=== PATIENT | female | born 2000 | race American Indian/Alaskan Native ===

== ENCOUNTER 2018-04-14 10:06 | Emergency (ER) | payer OTHER ==
[~2018-04-14] VITALS: Ht 162.6 cm; Wt 77.1 kg
[~2018-04-14 10:06] MED LIST: ACID CONTROLLER20 MG PO; CELEXA20 MG PO; CITALOPRAM HBR40 MG PO; CYCLOBENZAPRINE5 MG PO; DOXYCYCLINE HY100 MG PO; GENERESS FE CH1 EACH PO; LORATADINE10 MG PO; MELATONIN10 M2 PO; MELATONIN2.5 MG PO; MINIPRESS1 MG PO; NAPROXEN500 MG PO; NICOTINE PATCH1 EACH TD; NON-ASA ALLERG1 EACH PO; NORCO 5-325 TA1 EACH PO; OMEPRAZOLE20 MG PO; ONDANSETRON ODT4 MG SL; PEPCID40 MG PO; PROAIR HFA8.5 GM INH; TOPIRAMATE100 MG PO; TOPIRAMATE25 MG PO; VITAMIN D250000 UNIT PO; ZYPREXA10 MG PO; [UNRECOGNIZED DRUG - REMARK]
[2018-04-14] MEDS ORDERED: FLONASE ALLERG9.9 ML NAS (11:33)
[2018-04-14] MEDS ORDERED: ZYRTEC10 M3 PO (11:33)
== END 2018-04-14 11:50 | disposition home or self-care (01) ==
LOC: ED 10:06
DX: J34.1 Cyst and mucocele of nose and nasal sinus (principal); R51 Headache; Z87.891 Personal history of nicotine dependence; Z88.2 Allergy status to sulfonamides
CPT/HCPCS: 70450; 99284

== ENCOUNTER 2020-07-14 15:17 | Emergency (ER) | payer SELFPAY ==
[~2020-07-14] VITALS: Ht 162.6 cm; Wt 63.5 kg
[~2020-07-14 15:17] MED LIST changes: +FLONASE ALLERG9.9 ML NAS; +ZYRTEC10 M3 PO
== END 2020-07-14 21:00 | disposition home or self-care (01) ==
LOC: ED 15:17
DX: O99.611 Diseases of the digestive system complicating pregnancy, first trimester (principal); K59.00 Constipation, unspecified; O99.341 Other mental disorders complicating pregnancy, first trimester; F41.9 Anxiety disorder, unspecified; F32.9 Major depressive disorder, single episode, unspecified; O99.331 Smoking (tobacco) complicating pregnancy, first trimester; F17.200 Nicotine dependence, unspecified, uncomplicated; Z88.2 Allergy status to sulfonamides
CPT/HCPCS: 74018; 76705; 76801; 76817; 80053; 81001; 83690; 84702; 84703; 85025; 86900; 86901; 87210; 87491; 87591; 99284-25

== ENCOUNTER 2020-07-15 19:04 | Emergency (ER) | payer SELFPAY ==
[~2020-07-15] VITALS: Ht 162.6 cm; Wt 63.5 kg
--- OUTSIDE RECORDS SUMMARY | 2020-07-15 19:08 | XMS ---
PreManage Notification: KENYA STONE Security Skin Lap Bonder Events No recent Security Events currently on file CRITERIA MET - [facility] - 2 Visits in 30 Days CARE PROVIDERS There are no care providers on record at this time. Ran has no Care Guidelines for this patient. [place] VIS[facility] COUNT ([address] [facility] NOTE: Visits indicate total known visits. ED/C VISIT TRACKING (12 MO.) [facility]15[facility]2020 19[facility] [place] [facility] COMPLAINT: - ABDOMENAL PAIN 07/14/2020 15:18 [facility] [place] TYPE: Emergency COMPLAINT: - ABD PAIN, URINE PROBLEM INPATIENT VISIT TRACKING (12 MO.) No inpatient visits to display in this time frame [email or web address]
== END 2020-07-15 20:57 | disposition home or self-care (01) ==
LOC: ED 19:04
DX: O99.612 Diseases of the digestive system complicating pregnancy, second trimester (principal); K59.00 Constipation, unspecified; Z3A.14 14 weeks gestation of pregnancy; O99.331 Smoking (tobacco) complicating pregnancy, first trimester; F17.200 Nicotine dependence, unspecified, uncomplicated; Z88.2 Allergy status to sulfonamides
CPT/HCPCS: 84702; 85025; 99284

== ENCOUNTER 2021-09-24 01:32 | Inpatient (IN) | payer OTHER ==
[~2021-09-24] VITALS: Ht 162.6 cm; Wt 73.9 kg
--- NOTE | 2021-09-24 02:17 | NUR ---
COVID SWAB DONE TO BOTH NARES.
--- NOTE | 2021-09-24 10:04 | PR ---
[facility] [address] [facility] [address] [place], [place] [address] Signed Progress Notes IP Datetime Report Generated by CPN: 09/24/2021 10:04 PROGRESS NOTES: [id number] Impression: Normal Progression of Labor; Reassuring Heart Rate Procedures: Sterile Vag Exam Plan: Continue Present Management; Anticipate Vaginal Delivery Informed Consent Obtain: Vaginal Delivery VITAL SIGNS: [id number] Vital Signs: Reviewed; Within Normal Limits EXAM: [id number] Dilatation: 6.0 Effacement: 90 Station: -1 Contractions: q 2 min MEMBRANES: [id number] Comments: Pt seen and examined. Doing well. Tolerating contractions well. Will continue expectant management. Discussed AROM and will consider at next check FETUS A: [id number] FHR Baseline: 150 Variability: Moderate 6-25bpm Accelerations: None Decelerations: None FHR Category: Category I Presentation: Vertex Comments on Fetus A: No evidence of metabolic acidosis FETUS B: [id number] Signing Physician: Karine Estrella DO Copies: ~ *Electronically Signed* 09/24/21 1004 KARINE ESTRELLA DO PATIENT NAME: KENYA STONE ADAM Ledezma PROGRESS NOTE DATE OF : 98 PHYSICIAN: KARINE ESTRELLA DO RPT #: [id number] REPORT IS CONFIDENTIAL AND NOT TO BE RELEASED WITHOUT AUTHORIZATION
--- NOTE | 2021-09-24 13:13 | PR ---
[facility] [address] [place], [place] [address] Signed Progress Notes IP Datetime Report Generated by CPN: 09/24/2021 13:13 PROGRESS NOTES: [id number] Impression: Normal Progression of Labor; Reassuring Heart Rate Procedures: Artificial ROM; Sterile Vag Exam Plan: Continue Present Management; Anticipate Vaginal Delivery Informed Consent Obtain: Vaginal Delivery VITAL SIGNS: [id number] Vital Signs: Reviewed; Within Normal Limits EXAM: [id number] Dilatation: 7.0 Effacement: 90 Station: -1 Contractions: q 2 min MEMBRANES: [id number] Comments: Pt seen and examined. Doing well; painful w/ contractions. Discussed AROM and verbal consent obtained. After confirming vertex well applied, AROM easily performed for moderate amount clear fluid. Mother and baby tolerated well. FETUS A: [id number] FHR Baseline: 150 Variability: Moderate 6-25bpm Accelerations: None Decelerations: None FHR Category: Category I Presentation: Vertex Comments on Fetus A: No evidence of metabolic acidosis FETUS B: [id number] Signing Physician: Karine Estrella DO Copies: ~ *Electronically Signed* 09/24/21 1313 KARINE ESTRELLA DO PATIENT NAME: KENYA STONE PROGRESS NOTE DATE OF : 98 PHYSICIAN: KARINE ESTRELLA DO RPT #: [id number] REPORT IS CONFIDENTIAL AND NOT TO BE RELEASED WITHOUT AUTHORIZATION
--- NOTE | 2021-09-24 15:30 | PR ---
[facility] [address] [facility] [place] [place] [address] Signed Progress Notes IP Datetime Report Generated by CPN: 09/24/2021 15:30 PROGRESS NOTES: [id number] Impression: Normal Progression of Labor; Reassuring Heart Rate Procedures: Sterile Vag Exam Plan: Continue Present Management Other Plans: Discussed indications for augmentation if unchanged at next [facility] Informed Consent Obtain: Vaginal Delivery VITAL SIGNS: [id number] Vital Signs: Reviewed; Within Normal Limits EXAM: [id number] Dilatation: 7.0 Effacement: 90 Station: -1 Contractions: q 2 min MEMBRANES: [id number] Comments: Pt seen and examined. Doing well but very uncomfortable w/ contractions. Considering nitrous. Slow cervicl change noted and discussed if unchanged at next check would insert IUPC and consider augmentation FETUS A: [id number] FHR Baseline: 150 Variability: Moderate 6-25bpm Accelerations: None Decelerations: None FHR Category: Category I Presentation: Vertex Comments on Fetus A: No evidence of metabolic acidosis FETUS B: [id number] Signing Physician: Karine Estrella DO Copies: ~ *Electronically Signed* 09/24/21 9630 KARINE ESTRELLA DO PATIENT NAME: KENYA STONE PROGRESS NOTE DATE OF : 98 PHYSICIAN: KARINE ESTRELLA DO RPT #: [id number] REPORT IS CONFIDENTIAL AND NOT TO BE RELEASED WITHOUT AUTHORIZATION
--- NOTE | 2021-09-24 16:54 | PR ---
[facility] [address] [place], [place] [address] Signed Progress Notes IP Datetime Report Generated by CPN: 09/24/2021 16:54 PROGRESS NOTES: [id number] Impression: Normal Progression of Labor; Reassuring Heart Rate Procedures: Intrauterine Pressure Catheter; Scalp Electrode; Sterile Vag Exam Plan: Anesthesia Consult Other Plans: Discussed indications for augmentation if unchanged at next [facility] Informed Consent Obtain: Vaginal Delivery VITAL SIGNS: [id number] Vital Signs: Reviewed; Within Normal Limits EXAM: [id number] Dilatation: 8.0 Effacement: 80 Station: -1 Contractions: q 2 min MEMBRANES: [id number] Comments: Pt seen and examined. Very uncomfortable w/ contractions and requesting epidural. Anesthesia notified. IUPC and FSE placed. Anterior lip of the cervix noted to have some edema secondary to involuntary pushing by pt. Discussed neuroaxial anesthesia can help alleviate urge to push prior to complete dilation. Will monitor CTXs for adequacy and consider augmentation if needed. Reviewed adequate pelvis and EFW. All questions answered. FETUS A: [id number] FHR Baseline: 150 Variability: Moderate 6-25bpm Accelerations: None Decelerations: None FHR Category: Category I Presentation: Vertex Comments on Fetus A: No evidence of metabolic acidosis FETUS B: [id number] Signing Physician: Karine Estrella DO Copies: ~ *Electronically Signed* 09/24/21 9577 KARINE ESTRELLA DO PATIENT NAME: KENYA STONE PROGRESS NOTE DATE OF : 98 PHYSICIAN: KARINE ESTRELLA DO RPT #: [id number] REPORT IS CONFIDENTIAL AND NOT TO BE RELEASED WITHOUT AUTHORIZATION
--- NOTE | 2021-09-24 20:54 | PR ---
[facility] [address] [place], [place] [address] Signed Progress Notes IP Datetime Report Generated by CPN: 09/24/2021 20:54 PROGRESS NOTES: [id number] Impression: Normal Progression of Labor; Reassuring Heart Rate Procedures: Sterile Vag Exam Plan: Augmentation; Anticipate Vaginal Delivery Other Plans: Discussed indications for augmentation if unchanged at next [facility] Informed Consent Obtain: Vaginal Delivery VITAL SIGNS: [id number] Vital Signs: Reviewed; Within Normal Limits EXAM: [id number] Dilatation: 9.0 Effacement: 100 Station: -1 Contractions: q 2 min MEMBRANES: [id number] Comments: Pt seen and examined. Doing well. Comfortable w/ epidural. Reviewed slow progress of labor. Cervical edema resolved w/ benadryl and cessation of involuntary pushing. Contractions inadequate. Reviewed Cat 2 tracing with minimal variability. Accel with scalp stim. Reviewed anticipated course of labor / delivery. All questions answered. FETUS A: [id number] FHR Baseline: 150 Variability: Moderate 6-25bpm Accelerations: None Decelerations: None FHR Category: Category I Presentation: Vertex Comments on Fetus A: No evidence of metabolic acidosis FETUS B: [id number] Signing Physician: Karine Estrella DO Copies: ~ *Electronically Signed* 09/24/212053 KARINE ESTRELLA DO PATIENT NAME: KENYA STONE PROGRESS NOTE DATE OF : 98 PHYSICIAN: KARINE ESTRELLA DO RPT #: [id number] REPORT IS CONFIDENTIAL AND NOT TO BE RELEASED WITHOUT AUTHORIZATION
--- NOTE | 2021-09-24 21:50 | PR ---
[facility] [address] [place], [place] [address] Signed Progress Notes IP Datetime Report Generated by CPN: 09/24/2021 21:50 PROGRESS NOTES: [id number] Impression: Reassuring Heart Rate Other Impressions: Inadequate CTX Procedures: Sterile Vag Exam Plan: Continue Present Management Other Plans: Discussed indications for augmentation if unchanged at next [facility] Informed Consent Obtain: Vaginal Delivery VITAL SIGNS: [id number] Vital Signs: Reviewed; Within Normal Limits EXAM: [id number] Dilatation: 9.0 Effacement: 100 Station: -1 Contractions: q 2 min MEMBRANES: [id number] Comments: Pt seen and examined. Resting w/ epidural. Pitocin started at 2109 per low dose protocol. Reviewed reassuring FHT and inadequate CTXs, adequate pelvis, and EFW. acceleration w/ scalp stim. Recommend continued augmentation w/ pitocin but also reviewed indications for primary C/S if needed. Pt understands and agrees. All questions answered. FETUS A: [id number] FHR Baseline: 150 Variability: Moderate 6-25bpm Accelerations: None Decelerations: None FHR Category: Category I Presentation: Vertex Comments on Fetus A: No evidence of metabolic acidosis FETUS B: [id number] Signing Physician: Karine Estrella DO Copies: ~ *Electronically Signed* 09/24/21 6905 KARINE ESTRELLA DO PATIENT NAME: KENYA STONE ASHOK Brisa PROGRESS NOTE DATE OF : 98 PHYSICIAN: KARINE ESTRELLA DO RPT #: [id number] REPORT IS CONFIDENTIAL AND NOT TO BE RELEASED WITHOUT AUTHORIZATION
--- NOTE | 2021-09-24 22:17 | PR ---
[facility] [address] [place], [place] [address] Signed Progress Notes IP Datetime Report Generated by CPN: 09/24/2021 22:17 PROGRESS NOTES: [id number] Impression: Reassuring Heart Rate Other Impressions: Inadequate CTX Procedures: Sterile Vag Exam Plan: Anticipate Vaginal Delivery Other Plans: Discussed indications for augmentation if unchanged at next [facility] Informed Consent Obtain: Vaginal Delivery; Section Delivery VITAL SIGNS: [id number] Vital Signs: Reviewed; Within Normal Limits EXAM: [id number] Dilatation: 9.0 Effacement: 100 Station: -1 Contractions: q 2 min MEMBRANES: [id number] Comments: Pt seen and examined. Comfortable w/ epidural. Reviewed strip w/ minimal variability w/ intermittent late decels, accles w/ scalp stim. Cat 2 tracing. Pt now complete and fetus tolerated pushing. Discussed close monitoring of FHT. Will attempt to push for , but if fetus does not tolerate will consider C/S. All questions answered. FETUS A: [id number] FHR Baseline: 150 Variability: Moderate 6-25bpm Accelerations: None Decelerations: None FHR Category: Category I Presentation: Vertex Comments on Fetus A: No evidence of metabolic acidosis FETUS B: [id number] Signing Physician: Karine Estrella DO Copies: ~ *Electronically Signed* 09/24/21 2387 KARINE ESTRELLA DO PATIENT NAME: KENYA STONE PROGRESS NOTE DATE OF : 98 PHYSICIAN: KARINE ESTRELLA DO RPT #: [id number] REPORT IS CONFIDENTIAL AND NOT TO BE RELEASED WITHOUT AUTHORIZATION
--- NOTE | 2021-09-24 22:18 | PR ---
[facility] [address] [place], [place] [address] Signed Progress Notes IP Datetime Report Generated by CPN: 09/24/2021 22:18 PROGRESS NOTES: [id number] Impression: Reassuring Heart Rate Other Impressions: Inadequate CTX Procedures: Sterile Vag Exam Plan: Anticipate Vaginal Delivery Other Plans: Discussed indications for augmentation if unchanged at next [facility] Informed Consent Obtain: Vaginal Delivery; Section Delivery VITAL SIGNS: [id number] Vital Signs: Reviewed; Within Normal Limits EXAM: [id number] Dilatation: 10.0 Effacement: 100 Station: 0 Contractions: q 2 min MEMBRANES: [id number] Comments: Pt seen and examined. Comfortable w/ epidural. Reviewed strip w/ minimal variability w/ intermittent late decels, accles w/ scalp stim. Cat 2 tracing. Pt now complete and fetus tolerated pushing. Discussed close monitoring of FHT. Will attempt to push for , but if fetus does not tolerate will consider C/S. All questions answered. FETUS A: [id number] FHR Baseline: 150 Variability: Moderate 6-25bpm Accelerations: None Decelerations: None FHR Category: Category I Presentation: Vertex Comments on Fetus A: No evidence of metabolic acidosis FETUS B: [id number] Signing Physician: Karine Estrella DO Copies: ~ *Electronically Signed* 09/24/21 3053 KARINE ESTRELLA DO PATIENT NAME: KENYA STONE PROGRESS NOTE DATE OF : 98 PHYSICIAN: KARINE ESTRELLA DO RPT #: [id number] REPORT IS CONFIDENTIAL AND NOT TO BE RELEASED WITHOUT AUTHORIZATION
--- NOTE | 2021-09-24 22:44 | PR ---
[facility] [address] [place], [place] [address] Signed Progress Notes IP Datetime Report Generated by CPN: 09/24/2021 22:43 PROGRESS NOTES: [id number] Impression: Normal Progression of Labor; Reassuring Heart Rate Other Impressions: Inadequate CTX Procedures: Sterile Vag Exam Plan: Continue Present Management; Anticipate Vaginal Delivery Other Plans: Discussed indications for augmentation if unchanged at next [facility] Informed Consent Obtain: Vaginal Delivery; Section Delivery VITAL SIGNS: [id number] Vital Signs: Reviewed; Within Normal Limits EXAM: [id number] Dilatation: 10.0 Effacement: 100 Station: 0 Contractions: q 2 min MEMBRANES: [id number] Comments: Pt seen and examined. Doing well. Complete and pushing w/ contractions. FHT reassuring and fetus tolerating 2nd stage well. Epidural decreased to help coordinate pushing efforts. Anticipate FETUS A: [id number] FHR Baseline: 150 Variability: Moderate 6-25bpm Accelerations: None Decelerations: None FHR Category: Category I Presentation: Vertex Comments on Fetus A: No evidence of metabolic acidosis FETUS B: [id number] Signing Physician: Karine Estrella DO Copies: ~ *Electronically Signed* 09/24/21 4253 KARINE ESTRELLA DO PATIENT NAME: KENYA STONE PROGRESS NOTE DATE OF : 98 PHYSICIAN: KARINE ESTRELLA DO RPT #: [id number] REPORT IS CONFIDENTIAL AND NOT TO BE RELEASED WITHOUT AUTHORIZATION
--- NOTE | 2021-09-24 23:36 | PR ---
[facility] [address] [place], [place] [address] Signed Progress Notes IP Datetime Report Generated by CPN: 09/24/2021 23:36 PROGRESS NOTES: [id number] Impression: Normal Progression of Labor; Reassuring Heart Rate Other Impressions: Inadequate CTX Procedures: Sterile Vag Exam Plan: Anticipate Vaginal Delivery Other Plans: Discussed indications for augmentation if unchanged at next [facility] Informed Consent Obtain: Vaginal Delivery VITAL SIGNS: [id number] Vital Signs: Reviewed; Within Normal Limits EXAM: [id number] Dilatation: 10.0 Effacement: 100 Station: 0 Contractions: q 2 min MEMBRANES: [id number] Comments: Pt seen and examined. Doing well pushing w/ contractions and good descent noted. Anticipate soon FETUS A: [id number] FHR Baseline: 150 Variability: Moderate 6-25bpm Accelerations: None Decelerations: None FHR Category: Category I Presentation: Vertex Comments on Fetus A: No evidence of metabolic acidosis FETUS B: [id number] Signing Physician: Karine Estrella DO Copies: ~ *Electronically Signed* 09/24/21 2336 KARINE ESTRELLA DO PATIENT NAME: KENYA STONE PROGRESS NOTE DATE OF : 98 PHYSICIAN: KARINE ESTRELLA DO RPT #: [id number] REPORT IS CONFIDENTIAL AND NOT TO BE RELEASED WITHOUT AUTHORIZATION
--- NOTE | 2021-09-25 18:39 | PR ---
[facility] [address] [place], [place] [address] Signed PP Progress Notes Datetime Report Generated by CPN: 09/25/2021 18:39 SUBJECTIVE: [id number] Pain: Within Normal Limits Nausea/Vomiting: Denies Flatus: Yes Bowel Movement: No Vital Signs: [id number] Vital Signs: Reviewed; Within Normal Limits Cardiovascular: Normal Respiratory: Normal Abdomen/Uterus: Normal Lochia: Normal CVA Tenderness: Normal Extremities: Normal Incision: Not Applicable Progress: Normal Exam Comments: Fundus firm U-2 nontender. Vulvar edema much improved per RN IMPRESSION/PLAN/PROCEDURES: [id number] Impression: Normal Progression Plan: Continue Present Management Progress Notes: Pt seen and examined. Doing well. Ambulating and tolerating full diet. No fevers/chills or other concerns. . Desires d/c home. Reviewed recommended d/c home for at least 24 hr post delivery and pt agrees. Plan d/c home in AM. All questions answered. Signing Physician: Karine Estrella DO Copies: ~ *Electronically Signed* 09/25/21 3047 KARINE ESTRELLA DO PATIENT NAME: KENYA STONE PROGRESS NOTE DATE OF : 98 PHYSICIAN: KARINE ESTRELLA DO RPT #: [id number] REPORT IS CONFIDENTIAL AND NOT TO BE RELEASED WITHOUT AUTHORIZATION
--- NOTE | 2021-09-26 13:23 | PR ---
[facility] [address] [facility] [place], [place] [address] Signed PP Progress Notes Datetime Report Generated by CPN: 09/26/2021 13:23 SUBJECTIVE: [id number] Pain: Within Normal Limits Nausea/Vomiting: Denies Flatus: Yes Bowel Movement: No Vital Signs: [id number] Vital Signs: Reviewed; Within Normal Limits EXAM: Ongoing Cardiovascular: Normal Respiratory: Normal Abdomen/Uterus: Normal Lochia: Normal CVA Tenderness: Normal Extremities: Normal Incision: Not Applicable Progress: Normal Exam Comments: Fundus firm U-2 nontender IMPRESSION/PLAN/PROCEDURES: [id number] Impression: Normal Progression Plan: Discharge Progress Notes: Pt seen and examined. Doing well. Ambulating, voiding, and tolerating full diet. Pain and lochia minimal. well. No lightheadedness/dizziness. Desires d/c home today. Reviewed d/c instructions. Pt and partner considering pp contraceptive plans. F/U 2 wks Signing Physician: Karine Estrella DO Copies: ~ *Electronically Signed* 09/26/21 4211 KARINE ESTRELLA DO PATIENT NAME: RED BULL,KENYA Ledezma PROGRESS NOTE DATE OF : 98 PHYSICIAN: KARINE ESTRELLA DO RPT #: [id number] REPORT IS CONFIDENTIAL AND NOT TO BE RELEASED WITHOUT AUTHORIZATION
== END 2021-09-26 16:21 | disposition home or self-care (01) | DRG 807 ==
LOC: FBC
PROVIDERS: ADMIT Obstetrics & Gynecology; ATTEND Obstetrics & Gynecology
PROC: 10E0XZZ Delivery of Products of Conception, External Approach (ICD-10-PCS; principal; 2021-09-25)
PROC: 0KQM0ZZ Repair Perineum Muscle, Open Approach (ICD-10-PCS; 2021-09-25)
PROC: 0KQM0ZZ Repair Perineum Muscle, Open Approach (ICD-10-PCS; 2021-09-25)
PROC: 10907ZC Drainage of Amniotic Fluid, Therapeutic from Products of Conception, Via Natural or Artificial Opening (ICD-10-PCS; 2021-09-25)
PROC: 3E0R3BZ Introduction of Anesthetic Agent into Spinal Canal, Percutaneous Approach (ICD-10-PCS; 2021-09-25)
PROC: 00HU33Z Insertion of Infusion Device into Spinal Canal, Percutaneous Approach (ICD-10-PCS; 2021-09-25)
DX: O48.0 Post-term pregnancy (principal); Z37.0 Single live birth; Z3A.41 41 weeks gestation of pregnancy; O43.123 Velamentous insertion of umbilical cord, third trimester; O63.1 Prolonged second stage (of labor); Z20.822 Contact with and (suspected) exposure to COVID-19; O70.1 Second degree perineal laceration during delivery; O76 Abnormality in fetal heart rate and rhythm complicating labor and delivery; O99.02 Anemia complicating childbirth; D64.9 Anemia, unspecified
CPT/HCPCS: 01960; 80500; 85027; A9270; C9803; J2590; J2795; Q0163; U0003

== ENCOUNTER 2021-09-29 21:29 | Emergency (ER) | payer OTHER ==
[~2021-09-29] VITALS: Ht 152.4 cm; Wt 73.9 kg
[2021-09-29] MEDS ORDERED: PRENATAL VITAM1 EAC5 PO (21:45)
[2021-09-29] MEDS ORDERED: IBU800 MG PO (21:46)
[2021-09-29] MEDS ORDERED: FEROSUL325 MG PO (21:46)
== END 2021-09-29 23:08 | disposition home or self-care (01) ==
LOC: ED 21:29
DX: R60.0 Localized edema (principal); Z87.891 Personal history of nicotine dependence; Z88.2 Allergy status to sulfonamides; Z79.899 Other long term (current) drug therapy
CPT/HCPCS: 93970; 99283-25

== ENCOUNTER 2022-10-29 13:19 | Inpatient (IN) | payer OTHER ==
[~2022-10-29] VITALS: Ht 162.6 cm; Wt 81.6 kg
[~2022-10-29 13:19] MED LIST changes: +FEROSUL325 MG PO; +IBU800 MG PO; +PRENATAL VITAM1 EAC5 PO
--- NOTE | 2022-11-01 18:09 | PR ---
[facility] [address] [facility] [place] [place] [address] Signed Progress Notes IP Datetime Report Generated by CPN: 11/01/2022 18:09 PROGRESS NOTES: [id number] Impression: Normal Progression of Labor Plan: Continue Present Management Informed Consent Obtain: Vaginal Delivery VITAL SIGNS: [id number] Vital Signs: Reviewed; Within Normal Limits EXAM: [id number] Dilatation: 7.0 Effacement: 90 Station: 0 Contractions: rare per pt MEMBRANES: [id number] Membranes Status: Ruptured Amniotic Fluid Color: Meconium, Particulate Comments: S: Patient well. Discomfort from contractions, but does not want anything for pain at this time. O: AFVSS SVE: /0 A/P: Patient well. Will continue to monitor. Anticipate . FETUS A: [id number] FHR Baseline: 155 Variability: Moderate 6-25bpm Accelerations: 15X15 Decelerations: None FHR Category: Category I Presentation: Vertex Comments on Fetus A: No evidence of metabolic acidosis FETUS B: [id number] Signing Physician: Taniya Marroquin MD Copies: ~ *Electronically Signed* 11/01/22 0687 TANIYA MARROQUIN MD PATIENT NAME: KENYA STONE PROGRESS NOTE DATE OF : 98 PHYSICIAN: TANIYA MARROQUIN MD RPT #: [id number] REPORT IS CONFIDENTIAL AND NOT TO BE RELEASED WITHOUT AUTHORIZATION
--- NOTE | 2022-11-02 08:42 | PR ---
[facility] [address] [facility] [place], [place] [address] Signed PP Progress Notes Datetime Report Generated by CPN: 11/02/2022 08:42 SUBJECTIVE: [id number] Pain: Within Normal Limits Nausea/Vomiting: Denies Flatus: Yes Vital Signs: [id number] Vital Signs: Reviewed; Within Normal Limits Cardiovascular: Not Done Respiratory: Not Done Abdomen/Uterus: Normal Lochia: Normal Vulva/Perineum: Not Done Breasts: Not Done CVA Tenderness: Not Done Extremities: Normal Progress: Normal IMPRESSION/PLAN/PROCEDURES: [id number] Impression: Normal Progression Plan: Discharge Procedures: None Progress Notes: 22 yo PPD 1, s/p vaginal delivery. Doing well. Denies VEE, CP, SOB, F/C, N/V, RUQ pain, changes in vision, vaginal discharge. Ambulating, tolerating regular diet, pain controlled, voiding on her own. Would like to be discharged home today. Discharge orders to be placed. Pt aware she may stay either as in patient or as boarder patient depending on baby's disposition. Signing Physician: Taniya Marroquin MD Copies: ~ *Electronically Signed* 11/02/22841 TANIYA MARROQUIN MD PATIENT NAME: KENYA STONE PROGRESS NOTE DATE OF : 98 PHYSICIAN: TANIYA MARROQUIN MD RPT #: [id number] REPORT IS CONFIDENTIAL AND NOT TO BE RELEASED WITHOUT AUTHORIZATION
--- NOTE | 2022-11-03 06:08 | OR ---
[facility] [address], [place] [address] Signed DATE OF OPERATION: 11/01/2022 SURGEON: Tereso Perez DO PROCEDURE: External cephalic version. PREOPERATIVE DIAGNOSES: Home breech presentation, history of vaginal delivery, 38 weeks' gestation. POSTOPERATIVE DIAGNOSIS: Home breech presentation, history of vaginal delivery, 38 weeks' gestation. ANESTHESIA: Combined spinal/ epidural CAD TECHNICIAN: Romeo Whalen M.D. FINDINGS: Stable heart rate pre and post procedure. head maternal RUQ, spine to maternal left, pelvis in maternal pelvis in home breech presentation. INDICATIONS: The patient is a 22-year-old, , who presented to [facility] for scheduled external cephalic version. Medical history significant for previous successful vaginal delivery without complications; however, she was found to be in breech presentation on recent ultrasound in the office. 36 week ultrasound had previously confirmed cephalic presentation, concerning for unstable lie. Placenta anterofundal. Risks, benefits, and alternatives to the ECV versus primary delivery were discussed. The patient strongly desired attempt at external cephalic version. Today, she is 38 and 6/7 weeks' gestation. Reactive heart rate tracing was obtained prior to moving her to the operating room for the procedure. Upon arrival she was alan regularly but not making any cervical change, with cervical dilation at 1.5cm. Risks of the ECV, including abnormal heart rate, pre labor rupture of membranes, abruption, injury to fetus, possible emergency , and failed ECV were discussed with the patient and she elected to proceed. Electronically Signed By: TERESO PEREZ DO 11/03/22 0608 PATIENT NAME: KENYA STONE OPERATIVE REPORT DATE OF : [birth year] REPORT #: [id number] PHYSICIAN: TERESO PEREZ DO PCP: LEXY HARMAN REPORT IS CONFIDENTIAL AND NOT TO BE RELEASED WITHOUT AUTHORIZATION [facility] [address], [place] [address] Signed DESCRIPTION OF PROCEDURE: The patient was taken to the operating room, where she was given a combined spinal epidural anesthesia. Terbutaline was administered subcutaneously. Bedside ultrasound confirmed a single intrauterine with a home breech presentation with head in the maternal right upper quadrant and spine on maternal left. pelvis is located in the maternal pelvis and was subjectively easy to elevate. Fluid was subjectively normal. Using manual pressure, fetus was easily elevated from the pelvis and with gentle pressure using palms against the buttock and posterior occiput in a forward rolling motion, the fetus is manipulated. The baby was easily manipulated into a transverse position with head on maternal right and then in a second attempt easily moved from transverse into vertex position. heart rate was obtained with direct ultrasound visualization between each attempt and was reassuring after the first attempt between 115 and 125. After the second attempt and successful version , heart rate was initially in the 90s and quickly spontaneously resolved back to the 110s-120s. There were no signs of rupture of membranes or vaginal bleeding. Patient was taken back to her [facility] room for four hours of continuous monitoring following the procedure, at which time discharge is anticipated unless in spontaneous labor. Mother and baby both tolerated the procedure well. Tereso Perez DO EMZ/MODL /[id number] Copies: ~ Electronically Signed By: TERESO PEREZ DO 11/03/22 0608 PATIENT NAME: KENYA STONE DATELIZABETH ASHOK Ledezma OPERATIVE REPORT DATE OF : [birth year] REPORT #: [id number] PHYSICIAN: TERESO PEREZ DO PCP: LEXY HARMAN REPORT IS CONFIDENTIAL AND NOT TO BE RELEASED WITHOUT AUTHORIZATION
== END 2022-11-02 19:22 | disposition home or self-care (01) | DRG 807 ==
LOC: OPS 11-01 07:00 → FBCO 11-01 07:00 → OPS 11-01 07:01 → FBC 11-01 07:01 → EDSTATUS 11-01 07:30 → DS 11-01 07:30 → OPS 11-01 07:30 → FBC 11-01 14:50
PROVIDERS: Obstetrics & Gynecology; ADMIT Obstetrics & Gynecology; ATTEND Obstetrics & Gynecology
PROC: 10S0XZZ Reposition Products of Conception, External Approach (ICD-10-PCS; 2022-11-01)
PROC: 10907ZC Drainage of Amniotic Fluid, Therapeutic from Products of Conception, Via Natural or Artificial Opening (ICD-10-PCS; 2022-11-01)
PROC: 10E0XZZ Delivery of Products of Conception, External Approach (ICD-10-PCS; principal; 2022-11-01 07:30)
DX: O32.1XX0 Maternal care for breech presentation, not applicable or unspecified (principal); Z37.0 Single live birth; Z20.822 Contact with and (suspected) exposure to COVID-19; Z67.40 Type O blood, Rh positive; Z3A.38 38 weeks gestation of pregnancy; Z87.891 Personal history of nicotine dependence
CPT/HCPCS: 01958; 36415; 59025; 59412; 85027; 86850; 86900; 86901; C9803; J2405; J2590; J2795; J3105; J7121; U0003

== ENCOUNTER 2025-03-31 21:20 | Emergency (ER) | payer OTHER ==
[~2025-03-31] VITALS: Ht 162.6 cm; Wt 78.6 kg
[2025-03-31 21:58] LABS: BILIRUBIN, URINE NEGATIVE (negative); BLOOD/HGB, URINE NEGATIVE (Negative); KETONE, URINE NEGATIVE (Negative); LEUK ESTERASE, URINE TRACE (negative); NITRITE, URINE NEGATIVE (negative)
[2025-03-31 22:13] LABS: BACTERIA, URINE 1+ /hpf (negative); CASTS, URINE NONE SEEN \\lpf; COLLECTION TYPE, URINE CLEAN CATCH; CRYSTALS, URINE NONE SEEN (0-1+); EPITHELIAL CELLS, URINE SQUAMOUS 2+ /lpf (0-1+); REFLEX CULTURE, URINE No (No)
[2025-03-31] MEDS ORDERED: MACROBID 100 M100 MG PO (22:32)
[2025-03-31] MEDS ORDERED: NITROFURANTOIN MONOHYD MACROCR 100 MG HOME.PACK PO ONE (22:45)
[2025-03-31 22:55] VITALS: BP 118/94
== END 2025-03-31 22:59 | disposition home or self-care (01) ==
LOC: ED 21:20
PROVIDERS: Family Medicine
DX: N39.0 Urinary tract infection, site not specified (principal); G47.00 Insomnia, unspecified; Z87.891 Personal history of nicotine dependence
CPT/HCPCS: 36415; 81001; 84703; 99283

== ENCOUNTER 2025-07-31 23:41 | Emergency (ER) | payer OTHER ==
[~2025-07-31] VITALS: Ht 162.6 cm; Wt 79.0 kg
[~2025-07-31 23:41] MED LIST changes: +MACROBID 100 M100 MG PO
[2025-08-01] MEDS ORDERED: AMOX TR-K CLV1 EAC1 PO (00:25)
[2025-08-01] MEDS ORDERED: ACETAMINOPHEN 500 MG TAB PO ONE (00:30)
[2025-08-01] MEDS ORDERED: AMOXICILLIN/CLAVULANATE K 875 MG HOME.PACK PO ONE (00:30)
[2025-08-01 00:38] VITALS: BP 113/76
== END 2025-08-01 00:38 | disposition home or self-care (01) ==
LOC: ED 23:41
DX: K04.7 Periapical abscess without sinus (principal); Z87.891 Personal history of nicotine dependence
CPT/HCPCS: 99282; A9270